=== PATIENT | female | born 1925 | race Caucasian/White ===

== ENCOUNTER 2016-04-24 09:35 | Inpatient (IN) | payer MEDICARE, OTHER ==
--- NOTE | 2016-04-24 09:40 | HP ---
SUPERVISING PHYSICIAN: Ezra Jones M.D. CHIEF COMPLAINT: Worsening shortness of breath. HISTORY OF PRESENT ILLNESS: Ms. Reinoso is an 89 year-old female patient with a history of chronic obstructive pulmonary disease and chronic bronchitis. She was seen on the in ' office for cough and chest congestion, and was started on a Z-Aditya and tapering Medrol Dosepak. She does use oxygen at home p.r.n. and utilizes Xopenex breathing treatments. The patient today presented back to ' office in followup and was found to have saturations on her O2 at 87% on room air at rest and was showing significant worsening of her symptoms with increasing dyspnea, worsening cough and productive sputum. She has failed to respond adequately to her outpatient treatment plan and with the worsening dyspnea and hypoxia showing 87% on room air, requested the patient be admitted for further treatment and evaluation. She will be admitted for exacerbation of chronic obstructive pulmonary disease having failed to respond to outpatient treatment plan with concerns for early pneumonia. PAST MEDICAL HISTORY: 1. Fractured pelvis. 2. Hyperlipidemia. 3. Peripheral vascular disease. 4. Chronic obstructive pulmonary disease, steroid dependent. 5. Diverticulosis. 6. Gastroesophageal reflux disease. 7. Microscopic hematuria. 8. History of renal artery stenosis with stent placement. 9. History of gout. 10. Osteoarthritis primarily affecting the hips. 11. Osteoporosis. 12. Rheumatoid arthritis. 13. History of rotator cuff on the right shoulder. 14. Mild dementia. 15. Anemia of chronic disease. 16. Small vessel cardiovascular disease. PAST SURGICAL HISTORY: 1. Appendectomy. 2 Hysterectomy. 3. Tonsillectomy and adenoidectomy. 4. Left renal stent in 2008. 5. Left iliac artery stent in 2008. CURRENT MEDICAL PROVIDERS: Sr. Operations Manager - Dr. Licea PRIMARY CARE PROVIDERS: Ezra Jones M.D. CURRENT MEDICATIONS: 1. Prednisone 15 mg 3 times a week. 2. Clonidine 0.1 mg as needed. 3. Azulfidine 500 mg twice daily. 4. Protonix 40 mg daily. 5. Xopenex 1.25 mg nebulizer every 4 hours as needed. 6. Lexapro 10 mg daily. 7. Aricept 10 mg at bedtime. 8. Plavix 75 mg daily. 9. Carvedilol 25 mg twice daily. 10. Butisol sodium 30 mg every 4 hours p.r.n. 11. Ridaura 3 mg twice daily. 12. Brovana 15 mcg twice daily. 13. Norvasc 10 mg twice daily. ALLERGIES: CIPROFLOXACIN, MILK PROTEIN EXTRACT, PENICILLIN AND TIOTROPIUM. FAMILY HISTORY: Unremarkable. SOCIAL HISTORY: The patient is a homemaker, retired. She is . She lives in [place]. She has never smoked. She is currently a nondrinker. REVIEW OF SYSTEMS: CONSTITUTIONAL: Denies any fatigue or fevers. HEENT: Positive for chest congestion and cough. RESPIRATORY: Positive for recent cough becoming more productive and worsening dyspnea with exertion. CARDIOVASCULAR: Denies any chest pains, palpitations or syncopal episodes. GASTROINTESTINAL: Denies any nausea or vomiting, diarrhea or constipation. GENITOURINARY: Denies any dysuria, increased frequency or other urinary symptoms. NEUROLOGIC: Denies any weaknesses, syncopal episodes, vision changes or headaches. PHYSICAL EXAMINATION: VITAL SIGNS: In the clinic this morning prior to admission showed her to have a temperature 97, blood pressure 118/58, heart rate 61, respirations 20. She was satting 87% on room air at rest. Admission weight 49.1 kg. GENERAL: The patient appears to be in no acute distress. She is well nourished , well developed, but does appear ill. HEENT: Tympanic membranes are clear bilaterally. Oropharynx is pink without any lesions. NECK: No jugular venous distention. CHEST: Lungs are noted for mild tachypneic rate with coarse breath sounds throughout, but no obvious rales or rhonchi, but there is diffuse expiratory wheezing more prominent on the right than the left. CARDIOVASCULAR: Regular rate and rhythm without any murmurs, gallops, or rubs. ABDOMEN: Soft, non-tender. Positive bowel sounds. EXTREMITIES: No clubbing, cyanosis or edema. NEUROLOGIC: She is alert and oriented times three. Cranial nerves II-XII are grossly intact. Facial features are symmetrical. Extraocular movements are within normal limits. There is no nystagmus noted. There is no notable focalizing or localizing neuromotor deficits. LABORATORY: White count 9.9, hemoglobin 10.7, hematocrit 33.6, platelet count 227,000. Differential did show a left shift. Chemistries show a low potassium at 3.5, otherwise normal electrolytes. BUN 22, creatinine 0.62, glucose 121. Liver functions show to be within normal limits. Urinalysis is pending. Blood cultures times 2 are pending. Sputum culture is pending. RADIOLOGY: Chest x-ray two view chest per radiology interpretation shows hyperinflation consistent with chronic obstructive pulmonary disease but no obvious infiltrative process is noted. ASSESSMENT: 1. Acute exacerbation of chronic obstructive pulmonary disease having failed to respond to outpatient treatment plan showing worsening symptoms to include hypoxia at rest with the patient normally wearing oxygen at night now requiring oxygen throughout the day with concerns for early developing pneumonia likely community acquired with sputum cultures pending. 2. Chronic obstructive pulmonary disease with chronic bronchitis with exacerbation as noted in number 1. The patient is steroid dependent. 3. History of diverticulosis. 4. Gastroesophageal reflux disease. 5. History of chronic microscopic hematuria. 6. History of renal artery stenosis with stents placed in the left renal and iliac arteries in 2008. 7. History of gout with no mention of complications or flare-up. 8. Anemia of chronic disease. PLAN: The patient will be admitted to the hospital directly from ' office for further treatment of exacerbation of chronic obstructive pulmonary disease having failed to respond to outpatient treatment plan with both Azithromycin and a Medrol Dosepak. She will be started on parenteral antibiotics to include Azithromycin and Rocephin pending sputum cultures. Will start her on aggressive pulmonary hygiene to include Xopenex breathing treatments and p.r.n. Albuterol along with aggressive pulmonary hygiene to include CPT and close monitoring. Will plan to resume medications as soon as they are verified and updated, and start her on DVT prophylaxis as per protocol.. Anticipate length of stay to be 2 to 3 days. Until then, will continue to monitor the patient closely and treat appropriately. Once discharged, the patient will need close followup with in the outpatient setting. #[id number] [facility]
[2016-04-24] MEDS ORDERED: HYDROcodone 5MG/APAP 325MG 1 EA TAB PO PRN (10:31)
[2016-04-24] MEDS ORDERED: MAGNESIUM HYDROXIDE 30 ML UD PO PRN (10:31)
[2016-04-24] MEDS ORDERED: ALBUTEROL SULFATE 2.5 MG/3 ML VIAL NEB PRN (10:31)
[2016-04-24] MEDS ORDERED: SODIUM CHLORIDE 0.9% (FLUSH) 10 ML SYG IV PRN (10:31)
[2016-04-24] MEDS ORDERED: ACETAMINOPHEN 325 MG TAB PO PRN (10:31)
[2016-04-24] MEDS ORDERED: methylPREDNISolone SODIUM SUC 125 MG/2 ML VIAL IV ONE (10:35)
[2016-04-24] MEDS ORDERED: SODIUM CHLORIDE 0.9% 10 ML VIAL IV PRN (10:46)
[2016-04-24] MEDS ORDERED: SODIUM CHLORIDE 0.9% (FLUSH) 10 ML SYG IV SCH (11:00)
[2016-04-24] MEDS ORDERED: IV SET AND CAP CHANGE INJ INJ SCH (11:00)
[2016-04-24] MEDS ORDERED: AZITHROMYCIN IV 500 MG in SODIUM CHLORIDE 0.9% 250ML 250 ML IVPB SCH (11:00)
--- NOTE | 2016-04-24 11:29 | RAD ---
EXAM DESCRIPTION: XR CHEST 2 VIEWS CLINICAL HISTORY: Pneumonia COMPARISON: 07/28/2012 TECHNIQUE: Two-views of the chest. FINDINGS: Mild cardiac enlargement and atherosclerotic are aortic, stable. Hyperinflation consistent with COPD. No edema, infiltrates or effusions. Stable degenerative kyphosis IMPRESSION: Hyperinflation consistent with COPD. No acute infiltrate Electronically signed by: Rd Gerard MD 04/24/2016 11:28
[2016-04-24] MEDS ORDERED: SODIUM CHL 0.9% 50ML MIN-BAG+ 50 ML IVPB ONE (11:47)
[2016-04-24] MEDS ORDERED: cefTRIAXone SODIUM 1 GM VIAL ONE (11:48)
[2016-04-24] MEDS ORDERED: SODIUM CHLORIDE 0.9% 250ML 250 ML ONE (11:48)
[2016-04-24] MEDS ORDERED: AZITHROMYCIN IV 500 MG VIAL IVPB ONE (11:49)
[2016-04-24] MEDS: cefTRIAXone SODIUM 1 GM in SODIUM CHL 0.9% 50ML MIN-BAG+ 50 ML IVPB SCH (12:14)
[2016-04-24] MEDS: KCL 20MEQ/0.45% NS 1,000 ML IVS PRN (12:15)
[2016-04-24] MEDS: AZITHROMYCIN IV 500 MG in SODIUM CHLORIDE 0.9% 250ML 250 ML IVPB SCH (13:08)
[2016-04-24] MEDS: LEVALBUTEROL NEBS 1.25 MG/3 ML VIAL INH SCH ×2 (13:13→16:32)
[2016-04-24] MEDS: methylPREDNISolone SODIUM SUC 125 MG/2 ML VIAL IV SCH ×2 (16:50→21:36)
--- NOTE | 2016-04-24 20:45 | PCM.CORE ---
Physician DVT/VTE - Nurse DVT Assessment & Total Each Risk Factor Represents 3 Points: Age over 75 years Each Risk Factor is 1 Point: Serious Lung disease (pnemonia <1month, COPD, emphysema,etc) DVT Assessment Score: 4 - 3-4 High Risk Treatments: Early Ambulation *, Sequential Compression Device Pharmacological: Enoxaparin 40 mg SQ Daily
[2016-04-24] MEDS: ENOXAPARIN SODIUM 40 MG/0.4 ML SYG SUBCU SCH (21:37)
[2016-04-25] MEDS ORDERED: PANTOPRAZOLE SODIUM IV 40 MG VIAL ONE (01:01)
[2016-04-25] MEDS: KCL 20MEQ/0.45% NS 1,000 ML IVS PRN (02:17)
[2016-04-25] MEDS: methylPREDNISolone SODIUM SUC 125 MG/2 ML VIAL IV SCH ×2 (04:14→20:59)
[2016-04-25] MEDS ORDERED: PANTOPRAZOLE SODIUM IV 40 MG VIAL IV SCH (06:30)
--- NOTE | 2016-04-25 07:28 | RAD ---
PROCEDURE: Chest,2 Views CLINICAL HISTORY: Pneumonia INDICATION: Same as above COMPARISON: 04/24/2016 TECHNIQUE: PA and and lateral chest radiographs were obtained. FINDINGS: The lung zafar are well inflated. There are no discrete airspace infiltrates, pneumothoraces or pleural effusions. The pulmonary vascularity is normal The cardiomediastinal silhouette is stable. Atherosclerotic changes are seen in the thoracic aorta. IMPRESSION: There is no acute pleural-parenchymal process seen in the imaged lung zafar. Place of interpretation: Teleradiology. Electronically signed by: Gilberto Vergara MD 04/25/2016 7:27 AM [facility]
[2016-04-25] MEDS: LEVALBUTEROL NEBS 1.25 MG/3 ML VIAL INH SCH ×3 (09:15→17:44)
[2016-04-25] MEDS: SODIUM CHLORIDE 0.9% (FLUSH) 10 ML SYG IV SCH ×2 (09:41→20:57)
[2016-04-25] MEDS ORDERED: SODIUM CHL 0.9% 50ML MIN-BAG+ 50 ML IVPB ONE (10:04)
[2016-04-25] MEDS ORDERED: cefTRIAXone SODIUM 1 GM VIAL ONE (10:05)
[2016-04-25] MEDS: cefTRIAXone SODIUM 1 GM in SODIUM CHL 0.9% 50ML MIN-BAG+ 50 ML IVPB SCH (11:17)
[2016-04-25] MEDS: amLODIPine BESYLATE 5 MG TAB PO SCH ×2 (14:05→20:58)
[2016-04-25] MEDS: ARFORMOTEROL TARTRATE IN SCH (14:30)
[2016-04-25] MEDS ORDERED: SODIUM CHLORIDE 0.9% 250ML 250 ML ONE (14:36)
[2016-04-25] MEDS ORDERED: AZITHROMYCIN IV 500 MG VIAL IVPB ONE (14:37)
[2016-04-25] MEDS: AZITHROMYCIN IV 500 MG in SODIUM CHLORIDE 0.9% 250ML 250 ML IVPB SCH (14:37)
[2016-04-25] MEDS ORDERED: CARVEDILOL 12.5 MG TAB ONE (14:48)
[2016-04-25] MEDS: sulfaSALAzine TAB 500 MG TAB PO SCH ×2 (15:06→20:58)
[2016-04-25] MEDS: ESCITALOPRAM 10 MG TAB PO SCH (15:09)
[2016-04-25] MEDS: CLOPIDOGREL 75 MG TAB PO SCH (15:09)
[2016-04-25] MEDS: [UNRECOGNIZED DRUG - OTHER] PO SCH ×2 (15:19→21:13)
[2016-04-25] MEDS: CARVEDILOL 12.5 MG TAB PO SCH (15:29)
[2016-04-25] MEDS ORDERED: DONEPEZIL HCL 5 MG TAB PO SCH (21:00)
[2016-04-25] MEDS: ENOXAPARIN SODIUM 40 MG/0.4 ML SYG SUBCU SCH (21:13)
--- NOTE | 2016-04-25 21:47 | PN ---
DATE: 04/25/16 SUPERVISING PHYSICIAN: Ezra Jones M.D. SUBJECTIVE: The patient looks better today. She said she feels better. She is actually visiting with family. Her appetite has been good. She remains afebrile. OBJECTIVE: VITAL SIGNS: T max 97.9, pulse 75, blood pressure 158/68, respirations 18 showing 96% saturation on 2 liters nasal cannula. I's and O's show a positive balance of 1903 with 2420 in, 525 out, however the patient has had several voids that were not measured and accounted for. Weight is 49.8 kg. GENERAL: The patient looks well this morning. She is visiting with family and she is alert. CHEST: Respiration rates are now within normal limits. She continues to have somewhat coarse breath sounds but no wheezing compared to admission. HEART: Regular rate and rhythm. ABDOMEN: Soft, non-tender. Positive bowel sounds. EXTREMITIES: No clubbing, cyanosis or edema. NEUROLOGIC : She is alert and oriented times three. LABORATORY: White count 5.5, hemoglobin 9.5, hematocrit 29.3, platelet count 206,000. Differential shows to be within normal limits today. Electrolytes show to be normalized with potassium 3.6, BUN 19, creatinine 0.4, glucose 142, calcium 7.8. MICROBIOLOGY: Blood cultures remain negative at 24 hours. She has yet to produce a sputum. RADIOLOGY: Chest x-ray this morning per radiology interpretation shows no acute pleural parenchymal process is seen in the imaged zafar with no acute airspace infiltrates, pneumothoraces or pleural effusions. ASSESSMENT: 1. Acute exacerbation of chronic obstructive pulmonary disease having failed to respond to outpatient treatment plan showing worsening symptoms today including hypoxia at rest with the patient normally wearing oxygen at night only now requiring oxygen throughout the day with concerns for early developing pneumonia most likely community acquired although showing clinical improvement after steroid initiation and antibiotics. 2. Chronic obstructive pulmonary disease with chronic bronchitis with exacerbation as noted in number 1 in a patient that is steroid dependent. 3. History of diverticulosis. 4. Gastroesophageal reflux disease. 5. History of chronic microscopic anemia. 6. Rheumatoid arthritis on chronic steroids and need modulating drugs making the patient a high risk for immunosuppression. 7. History of renal artery stenosis with stent placed in left renal and iliac arteries in 2008. 8. History of gout with no mention of complications or flare-ups. 9. Anemia of chronic disease. PLAN: The patient continues on antibiotics and aggressive pulmonary hygiene with steroids down to 60 mg every 12 hours. She has been saline locked as she is taking adequate p.o. fluids and has corrected her electrolyte imbalance. Will anticipate possible discharge tomorrow. Until then, continue to monitor the patient closely and treat appropriately. #[id number] [facility]
[2016-04-26] MEDS: ARFORMOTEROL TARTRATE IN SCH ×2 (00:04→12:51)
[2016-04-26] MEDS: LEVALBUTEROL NEBS 1.25 MG/3 ML VIAL INH SCH ×2 (00:05→09:30)
[2016-04-26] MEDS ORDERED: PANTOPRAZOLE SODIUM TAB 40 MG PO SCH (06:30)
[2016-04-26 07:08] VITALS: TEMP 98
[2016-04-26] MEDS ORDERED: MULTIPLE VITAMINS W/ MINERALS 1 EA TAB ONE (07:29)
[2016-04-26] MEDS ORDERED: MELOXICAM 7.5 MG TAB ONE (07:29)
[2016-04-26] MEDS ORDERED: risperiDONE 0.25 MG TAB ONE (07:29)
[2016-04-26] MEDS ORDERED: GABAPENTIN 300 MG CAP ONE (07:29)
[2016-04-26] MEDS ORDERED: LUBIPROSTONE 24 MCG CAP PO ONE (07:30)
[2016-04-26] MEDS ORDERED: SODIUM CHL 0.9% 50ML MIN-BAG+ 0 ML IVPB ONE (08:52)
[2016-04-26] MEDS ORDERED: cefTRIAXone SODIUM 1 GM VIAL ONE (08:52)
[2016-04-26] MEDS: amLODIPine BESYLATE 5 MG TAB PO SCH (09:40)
[2016-04-26] MEDS: [UNRECOGNIZED DRUG - OTHER] PO SCH (09:40)
[2016-04-26] MEDS: CLOPIDOGREL 75 MG TAB PO SCH (09:41)
[2016-04-26] MEDS: sulfaSALAzine TAB 500 MG TAB PO SCH (09:41)
[2016-04-26] MEDS: SODIUM CHLORIDE 0.9% (FLUSH) 10 ML SYG IV SCH (09:41)
[2016-04-26] MEDS: CARVEDILOL 12.5 MG TAB PO SCH (09:41)
[2016-04-26] MEDS: ESCITALOPRAM 10 MG TAB PO SCH (09:41)
[2016-04-26] MEDS: methylPREDNISolone SODIUM SUC 125 MG/2 ML VIAL IV SCH (09:42)
[2016-04-26 12:18] VITALS: BP 135/70; O2SAT 97
[2016-04-27] MEDS ORDERED: predniSONE 5 MG TAB PO SCH (09:00)
--- NOTE | 2016-04-28 11:34 | DS ---
SUPERVISING PHYSICIAN: Ezra Jones MD DISCHARGE DIAGNOSIS: 1. Acute exacerbation of chronic obstructive pulmonary disease having failed to respond to outpatient treatment plan showing worsening symptoms on admission including hypoxia at rest with the patient normally wearing oxygen at night only, now requiring oxygen throughout the day with concerns for early developing pneumonia, most likely community acquired, although showing clinical improvement after steroids and antibiotics. 2. Chronic obstructive pulmonary disease with chronic bronchitis and exacerbation as noted in #1 in a patient that is steroid dependent. 3. History of diverticulosis. 4. Gastroesophageal reflux disease. 5. History of chronic microscopic hematuria. 6. Rheumatoid arthritis on chronic steroids and needing modulating drugs to maintain control, making the patient a high risk for immunosuppression. 7. History of renal artery stenosis with stents placed in left renal and iliac arteries in 2008. 8. History of gout with no mention of complications or flare-ups. 9. Anemia of chronic disease. HISTORY OF PRESENT ILLNESS: Ms. Reinoso is an 89 year-old female patient with a history of chronic obstructive pulmonary disease and chronic bronchitis. She was seen on 04/22/16 in ' office for cough and chest congestion, and was started on a Z-Aditya and tapering Medrol Dosepak. She does use oxygen at home p.r.n. and utilizes Xopenex breathing treatments. The patient presented back to ' office in followup and was found to have saturations of her O2 at 87% on room air at rest and was showing significant worsening of her symptoms with increasing dyspnea, worsening cough and productive sputum. She had failed to respond adequately to her outpatient treatment plan and with the worsening dyspnea and hypoxia showing 87% on room air, requested the patient be admitted for further treatment and evaluation. She was admitted for exacerbation of chronic obstructive pulmonary disease having failed to respond to outpatient treatment plan with concerns for early pneumonia. LABORATORY: White count on admission was 9.9, at discharge was 7.3. Hemoglobin and hematocrit stabilized at 9.7 and 29.9 at discharge. Platelet count was within normal limits at 226,000. Differential did show a left shift. Chemistries showed normal electrolytes, just with a slightly low potassium at 3.5 on admission and 3.3 on discharge. BUN 21, creatinine 0.6 at discharge. Liver functions within normal limits. Urinalysis showed just a trace of intact blood, otherwise was within normal limits. MICROBIOLOGY: Influenza A and B swab by PCR was negative for A and B. Blood cultures were negative after 3 days at time of discharge. RADIOLOGY: On admission, chest x-ray per radiology interpretation showed hyperinflation consistent with chronic obstructive pulmonary disease, but no acute infiltrative processes on a two view chest. This was followed up on 04/25 after admission and per radiology interpretation continued to show no acute pleural or parenchymal processes. HOSPITAL COURSE: Ms. Reinoso was admitted as noted in history of present illness for exacerbation of chronic obstructive pulmonary disease with concerns for pneumonia. She was started on aggressive pulmonary treatments with DuoNeb as well as Solu-Medrol IV. She was started on antibiotics to include azithromycin and ceftriaxone. She did show good clinical improvement after IV therapy and was felt clinically well enough to be discharged. PLAN: Ms. Reinoso was discharged to have close clinical followup with . She was instructed to call ' office on Wednesday after discharge to schedule an appointment. She will resume all her other medications as prior to hospitalization as directed with noted change of prednisone to take normal daily dose of prednisone, which is every other day, to increase to 15 mg daily until she was seen in followup by . She was also instructed to complete all medications as prescribed by prior to hospitalization that included antibiotics and steroid tapering pack. She was to wear oxygen as instructed and in her daily activities as possible to help with increasing lung function and endurance. She was encouraged to return to the hospital should her symptoms worsens or fail to improve. At time of discharge, condition was good and stable. No medications were added to her medication regimen as prior to admission. She was discharged with no new prescriptions. [facility][id number] [facility]
== END 2016-04-26 11:50 | disposition home or self-care (01) | DRG 190 ==
LOC: OBSVTOIN 09:35 → MS 09:35
PROVIDERS: ADMIT Family Medicine; ATTEND Nurse Practitioner Family
DX: J44.0 Chronic obstructive pulmonary disease with (acute) lower respiratory infection (principal); J18.9 Pneumonia, unspecified organism; J44.1 Chronic obstructive pulmonary disease with (acute) exacerbation; R09.02 Hypoxemia; K21.9 Gastro-esophageal reflux disease without esophagitis; M06.9 Rheumatoid arthritis, unspecified; M10.9 Gout, unspecified; D63.8 Anemia in other chronic diseases classified elsewhere; E78.5 Hyperlipidemia, unspecified; I73.9 Peripheral vascular disease, unspecified; K57.30 Diverticulosis of large intestine without perforation or abscess without bleeding; M81.0 Age-related osteoporosis without current pathological fracture; M16.0 Bilateral primary osteoarthritis of hip; F03.90 Unspecified dementia, unspecified severity, without behavioral disturbance, psychotic disturbance, mood disturbance, and anxiety; Z66 Do not resuscitate; Z79.52 Long term (current) use of systemic steroids; Z79.02 Long term (current) use of antithrombotics/antiplatelets; Z79.899 Other long term (current) drug therapy; Z88.0 Allergy status to penicillin; Z88.1 Allergy status to other antibiotic agents; Z88.8 Allergy status to other drugs, medicaments and biological substances